=== PATIENT | male | born 1990 | race Hispanic/Latino ===

== ENCOUNTER 2018-06-25 21:11 | Emergency (ER) | payer BC ==
[~2018-06-25] VITALS: Ht 180.3 cm; Wt 72.6 kg
[2018-06-25] MEDS ORDERED: DIPHENHYDRAMINE HCL INJ 50 MG/ML VIAL ONE (21:22)
[2018-06-25] MEDS ORDERED: METHYLPREDNISOLONE SOD SUCC 125 MG/2ML VIAL ONE (21:22)
[2018-06-25] MEDS ORDERED: FAMOTIDINE 20 MG/2 ML VIAL IV STA (21:22)
[2018-06-25] MEDS ORDERED: FAMOTIDINE 20 MG/2 ML VIAL IV ONE (21:23)
[2018-06-25] MEDS ORDERED: SODIUM CHLORIDE 0.9% 500ML 500 ML ONE (21:23)
[2018-06-25] MEDS ORDERED: METHYLPREDNISOLONE SOD SUCC 125 MG/2ML VIAL IV ONE (21:30)
[2018-06-25] MEDS ORDERED: SODIUM CHLORIDE 0.9% 500ML 500 ML IV ONE (21:30)
[2018-06-25] MEDS ORDERED: DIPHENHYDRAMINE HCL INJ 50 MG/ML VIAL IV ONE (21:30)
== END 2018-06-25 23:11 | disposition home or self-care (01) ==
LOC: ER 21:11
DX: T78.1XXA Other adverse food reactions, not elsewhere classified, initial encounter (principal); Z87.891 Personal history of nicotine dependence
CPT/HCPCS: 99283; J1200; J2930; J7040